=== PATIENT | female | born 1935 | race Caucasian/White ===

== ENCOUNTER → 2016-09-01 | Outpatient (CLI) | payer MEDICARE, BC ==
--- NOTE | 2016-09-01 15:04 | ECHOF ---
ECHOCARDIOGRAM REPORT DATE OF PROCEDURE September 01, 2016 This is a two-dimensional echo with spectral Doppler, color-flow and M-mode. It was obtained in a patient with shortness of breath and congestive heart failure. Left atrial dimension is normal. Left ventricle end-diastolic dimension is normal. Left ventricular wall thickness is normal. LV systolic function is normal with ejection fraction of about 64%. Right atrium is normal. Right ventricle is normal. Aortic root dimension is normal. Mitral valve is morphologically normal with sstc-db-criqmdau mitral regurgitation. Aortic valve is a trileaflet structure with no stenosis. Clij-am-hmcmplku aortic insufficiency is present. Tricuspid valve shows hdhz-va-kpzekqog tricuspid regurgitation with moderate pulmonary hypertension with estimated pulmonary artery systolic pressure of 51. Pulmonary valve shows trace of pulmonary insufficiency. There is no pericardial effusion. IMPRESSION 1. Normal LV systolic function with ejection fraction of about 64%. 2. Qeli-ly-rtglqroa aortic insufficiency. 3. Kywi-yq-ataduhjn mitral regurgitation. 4. Lpbe-as-mdqhajbc tricuspid regurgitation with moderate pulmonary hypertension with estimated pulmonary artery systolic pressure of 51. 5. Trace of pulmonary insufficiency. [facility]
== END ==
LOC: IMA 10:15
PROVIDERS: ATTEND Internal Medicine Cardiovascular Disease
DX: I08.3 Combined rheumatic disorders of mitral, aortic and tricuspid valves (principal); I27.2 Other secondary pulmonary hypertension; I50.9 Heart failure, unspecified; R06.02 Shortness of breath
CPT/HCPCS: 93306

== ENCOUNTER 2017-07-01 10:57 | Observation (INO) ==
[2017-07-01] MEDS ORDERED: SALINE FLUSH 10ml SYRINGE IVF PRN (11:21)
[2017-07-01] MEDS ORDERED: NS 1,000 ML IV ONE (11:23)
--- NOTE | 2017-07-01 11:23 | Emergency Department Report ---
General Adult HPI - General Stated complaint: flu, low bp Time Seen by Provider: 07/01/17 11:20 Source: patient, family Mode of arrival: wheelchair Limitations: no limitations - History of Present Illness HPI narrative: 81-year-old female presents to the emergency department with a chief complaint of generalized weakness and potential hypotension after being diagnosed influenza positive one day ago at her primary care physician's office. She denies any current pain or discomfort other than mild generalized body aches. She did take her Coreg this morning after noting her blood pressure to be between 88 and 90 systolic. She did not take her [place]. She called her primary care physician's office and was recommended to come to the emergency department for further evaluation and treatment. She was at home when her symptoms began. Symptoms have been persistent in nature since onset. She has no other current complaints or associated symptoms. - Related Data Home Medications Medication Instructions Recorded Confirmed Acetaminophen [Acetaminophen Extra 1,000 mg PO Q6H PRN 07/01/17 07/01/17 Strength] Carvedilol 12.5 mg PO BID 07/01/17 07/01/17 ClonazePAM [Klonopin] 1 mg PO DAILY 07/01/17 07/01/17 Gabapentin 300 mg PO BID 07/01/17 07/01/17 Latanoprost 1 drop LEFT EYE HS 07/01/17 07/01/17 Levothyroxine Sodium 88 mcg PO ACB 07/01/17 07/01/17 Losartan [Cozaar] 25 mg PO BID 07/01/17 07/01/17 Omeprazole [Prilosec] 20 mg PO DAILY 07/01/17 07/01/17 Oseltamivir Phosphate 75 mg PO BID 07/01/17 07/01/17 Potassium Chloride [Klor-Con M20] 20 meq PO DAILY 07/01/17 07/01/17 Pramipexole [Mirapex] 1 mg PO HS 07/01/17 07/01/17 Simethicone [Gas-X] 125 mg PO PRN PRN 07/01/17 07/01/17 Trazodone HCl 150 mg PO HS 07/01/17 07/01/17 guaiFENesin [Mucinex] 600 mg PO Q12H PRN 07/01/17 07/01/17 Allergies Allergy/AdvReac Type Severity Reaction Status Date / Time ciprofloxacin [From Cipro] AdvReac Verified 07/01/17 11:28 levofloxacin [From Levaquin] AdvReac Verified 07/01/17 11:28 Sulfa (Sulfonamide AdvReac Verified 07/01/17 11:28 Antibiotics) Review of Systems Constitutional: Reports: weakness (generalized). Denies: fever, chills Eyes: Denies: eye pain, vision change ENT: Denies: ear pain, throat pain Cardiovascular: Denies: chest pain, palpitations Respiratory: Reports: cough. Denies: dyspnea, wheezes Gastrointestinal: Denies: abdominal pain, nausea, vomiting, diarrhea Genitourinary: Denies: urgency, dysuria Musculoskeletal: Denies: back pain, arthralgia Integumentary: Denies: erythema, rash Neurological: Denies: headache, numbness Psychiatric: Denies: anxiety, depression Endocrine: Denies: fatigue, heat or cold intolerance Hematological/Lymphatic: Denies: easy bleeding, easy bruising, lymphadenopathy Allergic/Immunologic: Denies: facial swelling, urticaria PFSH Patient Stated Medical History Cataracts Yes Other HEENT Yes: wears glasses Congestive Heart Failure Yes Hypertension Yes Valvular Heart Disease Yes: mitral valve Gastroesophageal Reflux Yes Disease Hx Kidney Stones Yes Osteoarthritis Yes Surgical History: Left Achilles tendon repair (results of using Cipro). 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 Family History: CAD - Father - Social History Smoking status: Never smoker Substance use type: does not use Alcohol intake frequency: does not drink Physical Exam - Limitations Limitations: no limitations - General General appearance: alert, in no apparent distress - Normal Exams: Head:: Normocephalic without trauma Eyes:: Pupils are PERRLA w/ EOMI, No scleral icterus, irritation, or foreign bodies noted ENMT:: No facial trauma, nasal exudates, pharyngeal erythema, or exudates are noted Dental: No fractured, loose, or missing teeth noted Neck:: Full range of motion, without adenopathy, JVD, bruits or thyromegaly Chest/Respirations:: Clear all daly, with good airflow, and symmetry bilaterally Cardiovascular:: Regular rate and rhythm, without murmur or gallop, Pulses 2+ all extremities, capillary refill, <2 seconds all extremities Abdomen:: Bowel sounds positive, soft, non-tender, non-distended, no hepatosplenomegaly, masses or bruits noted Lymphatic:: No lymphadenopathy, or lymphedema noted Musculoskeletal:: No tenderness, or deformity noted, good range of motion, all extremities Integumentary:: No rashes, hives, or bruising noted, hair and nails, without abnormality Neurological:: Patient is alert, and oriented, cranial nerves, motor/sensory/ cerebellar, exams w/o gross deficits, to observation Psychiatric:: Patient exhibits, appropriate attention, emotion and affect Course Vital Signs Temperature 99.0 F 07/01/17 11:00 Pulse Rate 59 L 07/01/17 11:00 Respiratory Rate 20 07/01/17 11:00 Blood Pressure 104/51 07/01/17 11:00 Pulse Oximetry 93 07/01/17 11:00 Temperature 97.5 F 07/02/17 10:49 Pulse Rate 60 07/02/17 10:49 Respiratory Rate 20 07/02/17 11:50 Blood Pressure 113/60 07/02/17 10:49 Pulse Oximetry 97 07/02/17 11:50 Medical Decision Making - [facility] Narrative Medical decision making narrative: Patient's blood pressure of 84/59 was an erroneous value and taken with an inappropriately sized cuff with the patient moving. Repeat blood pressure was taken immediately with appropriate cuff and patient was not truly hypotensive in the emergency Department. Patient was never truly hypotensive in the emergency department. I do not have a source of infection for antibiotic therapy. Patient was influenza positive. Labs / imaging reviewed in detail with the patient and family and questions are answered. Patient was given 1 L normal saline intravenously. Patient declined offered analgesic pain medication in the emergency Department. Patient unfortunately required supplemental oxygen in order to maintain oxygen saturation greater than 90%. Patient does not use home O2 at all. Due to the hypoxia patient will be admitted to the service of the hospitalist Dr. Santiago who is in agreement with the current plan of management. Patient was accepted by Dr. Santiago for further evaluation and treatment. - Lab Data Result diagrams: 07/02/17 04:23 07/02/17 04:23 Lab Results 07/01/17 07/01/17 07/01/17 Range/Units 11:37 11:42 11:42 WBC 4.5 (4.5-11.0) T/MM3 RBC 3.74 L (4.00-5.20) M/MM3 Hgb 12.0 (12-16) GM/DL Hct 37.0 (36-46) % MCV 98.9 (80-100) UM3 MCH 32.1 (26-34) UUG MCHC 32.4 (31-37) GM/DL RDW Std Deviation 44.9 (36.9-50.2) FL Plt Count 174 (130-400) T/MM3 MPV 8.9 L (9.4-12.4) UM3 Immature Gran % (Auto) 0.2 (0.0-0.5) % Neut % (Auto) 59.3 (33-66) % Lymph % (Auto) 30.1 (23-45) % Wright % (Auto) 9.8 H (0-9.0) % Eos % (Auto) 0.4 (0-4) % Baso % (Auto) 0.2 (0-2) % Neut # (Auto) 2.7 (1.8-7.7) T/MM3 Lymph # (Auto) 1.4 (1-4.8) T/MM3 Wright # (Auto) 0.4 (0-0.8) T/MM3 Eos # (Auto) 0.0 (0-0.5) T/MM3 Baso # (Auto) 0.0 (0-0.2) T/MM3 Abs Immat Gran (auto) 0.01 (0.00-0.03) T/MM3 Turbidity < 20 (0-20) Sodium 130 L (134-144) MEQ/L Potassium 4.3 (3.6-5) MEQ/L Chloride 96 L (98-107) MEQ/L Carbon Dioxide 24 (22-30) MEQ/L Anion Gap 10 (5-15) MEQ/L BUN 20.0 H (7-17) MG/DL Creatinine 1.0 (0.7-1.2) MG/DL GFR Calculation 53 BUN/Creatinine Ratio 20 (6-26) RATIO Glucose 102 (65-110) MG/DL Calculated Osmolality 254 L (261-280) MOSM/KG Calcium 8.9 (8.4-10.2) MG/DL Total Bilirubin 0.50 (0.20-1.30) MG/DL Icterus Index < 2 (0-7) AST 29 (14-36) U/L ALT 34 (9-52) U/L Alkaline Phosphatase 47 (38-126) U/L Troponin I < 0.012 (0-0.12) ng/ml Total Protein 6.8 (6.3-8.2) G/DL Albumin 3.7 (3.5-5.0) G/DL Globulin 3.1 (2.4-3.6) G/DL Albumin/Globulin Ratio 1.2 (1.1-2.2) RATIO Plasma Lactate 1.0 (0.6-2.2) MMOL/L Procalcitonin < 0.05 NG/ML Specimen Hemolysis < 15 (0-25) Ur Collection Type Urine Color (YELLOW) Urine Clarity Urine pH (5.0-8.0) Ur Specific [place] (1.015-1.025) Urine Protein (NEGATIVE) Urine Glucose (UA) (NEGATIVE) Urine Ketones (NEGATIVE) Urine Occult Blood (NEGATIVE) Urine Nitrate (NEGATIVE) Urine Bilirubin (NEGATIVE) Urine Urobilinogen (NORMAL) EU/DL Ur Leukocyte Esterase (NEGATIVE) Urinalysis Comment 07/01/17 Range/Units 11:59 WBC (4.5-11.0) T/MM3 RBC (4.00-5.20) M/MM3 Hgb (12-16) GM/DL Hct (36-46) % MCV (80-100) UM3 MCH (26-34) UUG MCHC (31-37) GM/DL RDW Std Deviation (36.9-50.2) FL Plt Count (130-400) T/MM3 MPV (9.4-12.4) UM3 Immature Gran % (Auto) (0.0-0.5) % Neut % (Auto) (33-66) % Lymph % (Auto) (23-45) % Wright % (Auto) (0-9.0) % Eos % (Auto) (0-4) % Baso % (Auto) (0-2) % Neut # (Auto) (1.8-7.7) T/MM3 Lymph # (Auto) (1-4.8) T/MM3 Wright # (Auto) (0-0.8) T/MM3 Eos # (Auto) (0-0.5) T/MM3 Baso # (Auto) (0-0.2) T/MM3 Abs Immat Gran (auto) (0.00-0.03) T/MM3 Turbidity (0-20) Sodium (134-144) MEQ/L Potassium (3.6-5) MEQ/L Chloride (98-107) MEQ/L Carbon Dioxide (22-30) MEQ/L Anion Gap (5-15) MEQ/L BUN (7-17) MG/DL Creatinine (0.7-1.2) MG/DL GFR Calculation BUN/Creatinine Ratio (6-26) RATIO Glucose (65-110) MG/DL Calculated Osmolality (261-280) MOSM/KG Calcium (8.4-10.2) MG/DL Total Bilirubin (0.20-1.30) MG/DL Icterus Index (0-7) AST (14-36) U/L ALT (9-52) U/L Alkaline Phosphatase (38-126) U/L Troponin I (0-0.12) ng/ml Total Protein (6.3-8.2) G/DL Albumin (3.5-5.0) G/DL Globulin (2.4-3.6) G/DL Albumin/Globulin Ratio (1.1-2.2) RATIO Plasma Lactate (0.6-2.2) MMOL/L Procalcitonin NG/ML Specimen Hemolysis (0-25) Ur Collection Type Urine, void-cc/notcc Urine Color Yellow (YELLOW) Urine Clarity Sl cloudy Urine pH 5.5 (5.0-8.0) Ur Specific [place] 1.020 (1.015-1.025) Urine Protein Negative (NEGATIVE) Urine Glucose (UA) Negative (NEGATIVE) Urine Ketones Negative (NEGATIVE) Urine Occult Blood Negative (NEGATIVE) Urine Nitrate Negative (NEGATIVE) Urine Bilirubin Negative (NEGATIVE) Urine Urobilinogen 0.2 (NORMAL) EU/DL Ur Leukocyte Esterase Negative (NEGATIVE) Urinalysis Comment Microscopic not ind. - Radiology Data CXR - No acute processes. - EKG Data EKG #1 EKG results narrative: Sinus rhythm. Right bundle-branch block. 62 bpm. No STEMI. Disposition Clinical Impression: Hypoxia, Influenza Disposition: 02 To [facility] Condition: Improved Time of Disposition: 13:00 (Admit. Dr. Santiago. ) - Seen By: physician
--- NOTE | 2017-07-01 12:29 | XRay Report ---
Indication: cough PROCEDURE: XR chest 1V: Encounter: Initial Comparison: June 29, 2017 FINDINGS: The lungs are clear. There is no abnormal airspace opacity, pleural effusion or pneumothorax identified. The heart size, pulmonary vasculature and mediastinum are within normal limits. No significant skeletal abnormality is seen. IMPRESSION: No acute cardiopulmonary abnormality. .
--- NOTE | 2017-07-01 14:20 | History & Physical Report ---
History of Present Illness Date: 07/01/17 Chief complaint: low blood pressure HPI: Patient is an 81-year-old female who presents to the ED with her daughter for evaluation due to daughter noting blood pressure of less than 90 systolic at home. She called patient's PCP, Dr. Coburn's office, recommended she reports the emergency room. Patient was seen at the asked to after hours clinic 3 nights ago for cough. Influenza testing was negative at that time. The following day she had a chest x-ray at the hospital which was negative. Yesterday, she was seen by Dr. Coburn's nurse practitioner because she continued to have temperature, cough, and diarrhea. She tested positive for influenza at that visit and was started on Tamiflu. Upon arrival to ED, patient's blood pressure is 104/51. She was given a liter of normal saline. Chest x-ray was negative. CBC and CMP were essentially negative other than sodium of 130, and BUN slightly elevated at 20. Troponin, lactate procalcitonin were negative. Her O2 sats could not be kept above 90% without 2 L of oxygen, thus, hospitalist service was contacted and patient was admitted for observation. Review of Systems All systems PM: 10-point ROS was reviewed, no additional remarkable complaints except (weakness, cough, shortness of breath, diarrhea, and decreased appetite) Past Medical History Medical History CHF Mitral valve regurgitation GERD Nephrolithiasis Hypertension Hypothyroidism Anxiety Eczema Osteoarthritis Surgical History: Left Achilles tendon repair (results of using Cipro). 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 Family History: Father-CT Mother- of old age at age 94. 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 Patient lives alone. Medications Home Medications Medication Instructions Recorded Confirmed Type Acetaminophen [Acetaminophen Extra 1,000 mg PO Q6H PRN 07/01/17 07/01/17 History Strength] Carvedilol [Carvedilol] 12.5 mg PO BID 07/01/17 07/01/17 History ClonazePAM [Klonopin] 1 mg PO DAILY 07/01/17 07/01/17 History Gabapentin [Gabapentin] 300 mg PO BID 07/01/17 07/01/17 History Latanoprost [Latanoprost] 1 drop LEFT EYE HS 07/01/17 07/01/17 History Levothyroxine Sodium 88 mcg PO ACB 07/01/17 07/01/17 History Losartan [Cozaar] 25 mg PO BID 07/01/17 07/01/17 History Omeprazole [Prilosec] 20 mg PO DAILY 07/01/17 07/01/17 History Oseltamivir Phosphate 75 mg PO BID 07/01/17 07/01/17 History Potassium Chloride [Klor-Con M20] 20 meq PO DAILY 07/01/17 07/01/17 History Pramipexole [Mirapex] 1 mg PO HS 07/01/17 07/01/17 History Simethicone [Gas-X] 125 mg PO PRN PRN 07/01/17 07/01/17 History Trazodone HCl 150 mg PO HS 07/01/17 07/01/17 History guaiFENesin [Mucinex] 600 mg PO Q12H PRN 07/01/17 07/01/17 History Allergies Allergy/AdvReac Type Severity Reaction Status Date / Time ciprofloxacin [From Cipro] AdvReac Verified 07/01/17 11:28 levofloxacin [From Levaquin] AdvReac Verified 07/01/17 11:28 Sulfa (Sulfonamide AdvReac Verified 07/01/17 11:28 Antibiotics) Exam Vital Signs: Temperature 99.0 F 07/01/17 11:00 Pulse Rate 56 L 07/01/17 13:49 Respiratory Rate 27 H 07/01/17 13:49 Blood Pressure 105/63 07/01/17 13:49 Pulse Oximetry 96 07/01/17 13:49 Height/Weight/BMI: Height 1.68 m Weight 71 kg - Constitutional Present: no acute distress, well nourished, well developed - Routine HEENT Exam Head: Present: normocephalic, atraumatic Eye: Present: EOMI, PERRL ENT: Present: mucous membranes moist, oropharynx clear - Routine Neck Exam Present: supple. Absent: lymphadenopathy, thyromegaly - Routine Respiratory Exam Present: CTA bilaterally. Absent: wheezes - Routine Cardiovascular Exam Present: RRR, murmur - Routine Abdominal Exam Present: soft, normoactive bowel sounds. Absent: tenderness, distended - Routine Extremities Exam Present: no edema, normal capillary refill - Routine Skin Exam Present: dry, warm - Routine Neurological Exam Present: alert, oriented X3, CN II-XII intact - Routine Psychiatric Exam Present: normal affect, cooperative Results - Labs CBC & Chem 7: 07/01/17 11:37 07/01/17 11:42 Labs: Laboratory Tests 07/01/17 07/01/17 11:42 11:42 Troponin I < 0.012 Plasma Lactate 1.0 Procalcitonin < 0.05 Urinalysis-negative Microbiology Results: Microbiology 07/01/17 11:37 Peripheral/Iv Start Blood Culture - Preliminary Culture Initiated - Results Pending 07/01/17 11:41 Peripheral/Iv Start Blood Culture - Preliminary Culture Initiated - Results Pending - ECG Data Tracing #1 Normal sinus rhythm, right bundle branch block, rate 62 - Imaging and Cardiology Chest x-ray Additional comments: Date of Exam: 07/01/17 Indication: cough PROCEDURE: XR chest 1V: FINDINGS: The lungs are clear. There is no abnormal airspace opacity, pleural effusion or pneumothorax identified. The heart size, pulmonary vasculature and mediastinum are within normal limits. No significant skeletal abnormality is seen. IMPRESSION: No acute cardiopulmonary abnormality. Assessment and Plan (1) Acute respiratory failure with hypoxemia Current visit: Yes Status: Acute Assessment and Plan: Assessment Acute respiratory failure with hypoxia Positive Influenza Diarrhea-present on admission Hyponatremia-present on admission CHF Mitral valve regurgitation GERD Nephrolithiasis Hypertension Hypothyroidism Anxiety Eczema Osteoarthritis Plan Admit for observation under the hospitalist service, Dr. Santiago attending. Patient bolused 1 liter of normal saline in ER. Continue fluids at 100 cc per hour for hyponatremia and diarrhea. Continue Tamiflu. Blood pressures have been stable since arrival. Will continue to monitor. Oxygen as needed. Patient wishes to be a full code. Her DPOA-H is her daughter Katrina Sidhu. Care to be returned to Dr. Coburn on dismissal. Case discussed with Dr. Santiago, Dr. Sahu (ED doctor), and office notes reviewed. DVT Prophylaxis: SCD's Resuscitation Status: Full Code - Physician Narrative Physician: Isaac Santiago MD Narrative: Date: 07/01/17 Time: 1715 I have independently evaluated and examined this patient. I reviewed the chart, the patient's history, and the PRINCIPAL BIOINFORMATICS SPECIALIST/PA's documented findings as above. We discussed and formulated the assessment and plan as above with additions as below: Patient says she began having cough and fever last weekend. She was dx with influenza on 06/29 and started Tamiflu. She was hypotensive this am. In ED she had hypoxia and was started on O2. She reports having had diarrhea (3-4 loose stools a day) since the weekend. She denies any lightheadedness and was just up to the BR on her own. NAD. CTAB. RRR. S/NT/ND +BS. No edema. Continue Tamiflu. IVF to help rehydrate. Patient was asked not to get up on her own yet. Consult PT/OT. Continue home meds. SCD's for DVT ppx. Hospital Course Summary Disclaimer: The visit summary below is not to be considered part of the above Progress Note. Hospital Course: 07/01/17-hospital admission Admit for observation under the hospitalist service, Dr. Santiago attending. Patient bolused 1 liter of normal saline in ER. Continue fluids at 100 cc per hour for hyponatremia and diarrhea. Continue Tamiflu. Blood pressures have been stable since arrival. Will continue to monitor. Oxygen as needed. Patient wishes to be a full code. Her DPOA-H is her daughter Katrina Sidhu. Care to be returned to Dr. Coburn on dismissal. Case discussed with Dr. Santiago, Dr. Sahu (ED doctor), and office notes reviewed.
[2017-07-01 14:30] VITALS: BMI 25.6
[2017-07-01] MEDS ORDERED: ACETAMINOPHEN 500 MG TABLET PO PRN (14:38)
[2017-07-01] MEDS ORDERED: GUAIFENESIN LA 600 MG TABLET PO PRN (14:38)
[2017-07-01] MEDS ORDERED: SIMETHICONE 125 MG PO PRN (14:38)
[2017-07-01] MEDS: NS 1,000 ML IV SCH (14:57)
[2017-07-01] MEDS: ALBUTEROL/IPRATROPIUM 2.5mg-0.5mg/3ml NEB AEROSOL SCH ×2 (16:28→20:20)
[2017-07-01] MEDS ORDERED: --POM--CARVEDILOL 12.5 MG TABLET PO SCH (17:30)
[2017-07-01] MEDS ORDERED: PRAMIPEXOLE 1 MG PO SCH (21:00)
[2017-07-01] MEDS ORDERED: LATANOPROST 0.005% EYE DROPS 2.5ml LEFT EYE SCH (21:00)
[2017-07-01] MEDS ORDERED: TRAZODONE 100 MG PO SCH (21:00)
[2017-07-01] MEDS: --POM--CARVEDILOL 12.5 MG TABLET PO SCH (21:52)
[2017-07-01] MEDS: --POM--GABAPENTIN 300 MG CAPSULE PO SCH (21:53)
[2017-07-01] MEDS: --POM--LOSARTAN 50 MG TABLET PO SCH (21:54)
[2017-07-01] MEDS: OSELTAMIVIR 75 MG PO SCH (21:54)
[2017-07-02] MEDS: NS 1,000 ML IV SCH ×2 (01:20→12:47)
[2017-07-02] MEDS ORDERED: --POM--LEVOTHYROXINE 88 MCG TABLET PO SCH (06:30)
[2017-07-02] MEDS ORDERED: --POM--OMEPRAZOLE 20 MG CAPSULE PO SCH (06:30)
[2017-07-02] MEDS: ALBUTEROL/IPRATROPIUM 2.5mg-0.5mg/3ml NEB AEROSOL SCH ×2 (08:35→11:50)
[2017-07-02] MEDS ORDERED: ClonazePAM 1 MG TABLET PO SCH (09:00)
[2017-07-02] MEDS: --POM--LOSARTAN 50 MG TABLET PO SCH (09:05)
[2017-07-02] MEDS: --POM--GABAPENTIN 300 MG CAPSULE PO SCH (09:05)
[2017-07-02] MEDS: --POM--CARVEDILOL 12.5 MG TABLET PO SCH (09:05)
[2017-07-02] MEDS: OSELTAMIVIR 75 MG PO SCH (09:06)
[2017-07-02 10:50] VITALS: BP 113/60; PULSE 60; RESP 20; TEMP 97.5
[2017-07-02 11:56] VITALS: O2SAT 97
--- NOTE | 2017-07-02 12:12 | Discharge Summary ---
Discharge Information Date of admission: 07/01/17 13:19 Anticipated date of discharge: 07/02/17 Attending Physician: Isaac Santiago IV, MD Primary care physician: Beatriz Coburn MD - Discharge Diagnosis (1) Acute respiratory failure with hypoxemia Status: Acute Acute respiratory failure with hypoxia Positive Influenza A Diarrhea-present on admission Hyponatremia-present on admission CHF Mitral valve regurgitation GERD Nephrolithiasis Hypertension Hypothyroidism Anxiety Eczema Osteoarthritis - Laboratory Labs: 07/02/17 04:23 07/02/17 04:23 Laboratory Tests 07/01/17 17:43 Influenza A (H3) PCR Detected A* - Radiology Radiology: Date of Exam: 07/01/17 Indication: cough PROCEDURE: XR chest 1V: FINDINGS: The lungs are clear. There is no abnormal airspace opacity, pleural effusion or pneumothorax identified. The heart size, pulmonary vasculature and mediastinum are within normal limits. No significant skeletal abnormality is seen. IMPRESSION: No acute cardiopulmonary abnormality. History of Present Illness HPI: Patient is an 81-year-old female who presents to the ED with her daughter for evaluation due to daughter noting blood pressure of less than 90 systolic at home. She called patient's PCP, Dr. Coburn's office, recommended she reports the emergency room. Patient was seen at the asked to after hours clinic 3 nights ago for cough. Influenza testing was negative at that time. The following day she had a chest x-ray at the hospital which was negative. Yesterday, she was seen by Dr. Coburn's nurse practitioner because she continued to have temperature, cough, and diarrhea. She tested positive for influenza at that visit and was started on Tamiflu. Upon arrival to ED, patient's blood pressure is 104/51. She was given a liter of normal saline. Chest x-ray was negative. CBC and CMP were essentially negative other than sodium of 130, and BUN slightly elevated at 20. Troponin, lactate procalcitonin were negative. Her O2 sats could not be kept above 90% without 2 L of oxygen, thus, hospitalist service was contacted and patient was admitted for observation. Objective Vital signs: Temperature 97.5 F 07/02/17 10:49 Pulse Rate 60 07/02/17 10:49 Respiratory Rate 20 07/02/17 11:50 Blood Pressure 113/60 07/02/17 10:49 Pulse Oximetry 97 07/02/17 11:50 Height/Weight/BMI: Height 1.68 m Weight 71.9 kg Body Mass Index 25.6 - Constitutional Present: no acute distress, well nourished, well developed - Routine HEENT Exam Head: Present: normocephalic, atraumatic - Routine Respiratory Exam Present: CTA bilaterally. Absent: wheezes - Routine Cardiovascular Exam Present: RRR, no murmur - Routine Abdominal Exam Present: soft, non distended, non tender - Routine Extremities Exam Present: no edema, normal capillary refill - Routine Skin Exam Present: dry, warm - Routine Neurological Exam Present: alert, oriented X3 - Routine Lymphatic Exam Lymphatic: Absent: adenopathy - Routine Psychiatric Exam Present: normal affect, cooperative Hospital Course This is a general summary of the patient's hospital course. For more details refer to the complete medical record. Hospital course: 07/01/17-hospital admission Admit for observation under the hospitalist service, Dr. Santiago attending. Patient bolused 1 liter of normal saline in ER. Continue fluids at 100 cc per hour for hyponatremia and diarrhea. Continue Tamiflu. Blood pressures have been stable since arrival. Will continue to monitor. Oxygen as needed. Patient wishes to be a full code. Her DPOA-H is her daughter Katrina Sidhu. Care to be returned to Dr. Coburn on dismissal. Case discussed with Dr. Santiago, Dr. Sahu (ED doctor), and office notes reviewed. 07/02/17 Patient was weaned off the oxygen this morning. She is able to ambulate and keep her O2 sat greater than 90. She is feeling better. Will discharge today. She'll finish out her course of Tamiflu. Time spent with patient: greater than 35 minutes Resuscitation Status: Full Code Discharge Plan - Discharge Disposition Discharge Date: 07/02/17 Disposition: 01 Discharged Home, Self-Care *Condition: Improved Reason For Visit (Visit label in EMR): hypoxia - Discharge Medications *Discharge Medications: Continue Simethicone [Gas-X] 125 mg PO PRN PRN PRN Reason: Gas Acetaminophen [Acetaminophen Extra Strength] 1,000 mg PO Q6H PRN PRN Reason: Pain Trazodone HCl 150 mg PO HS Potassium Chloride [Klor-Con M20] 20 meq PO DAILY Losartan [Cozaar] 25 mg PO BID Gabapentin 300 mg PO BID Pramipexole [Mirapex] 1 mg PO HS Carvedilol 12.5 mg PO BID Omeprazole [Prilosec] 20 mg PO DAILY Levothyroxine Sodium 88 mcg PO ACB Latanoprost 1 drop LEFT EYE HS guaiFENesin [Mucinex] 600 mg PO Q12H PRN PRN Reason: Prn Orders ClonazePAM [Klonopin] 1 mg PO DAILY Oseltamivir Phosphate 75 mg PO BID - Discharge Packet/Instructions *Diet: Low-sodium diet *Activity: As tolerated *Pain Management/Treatment: N/a *Wound Care: N/a Additional Instructions: To complete the Tamiflu course, you should take a total of 10 doses. You were given 3 doses while hospitalized, so you may stop your home supply of Tamiflu when you have 3 pills left. *Expected Signs/Symptoms: Expect slow improvement. You will likely feel weak/ tired for at least several days. Expect the cough to slowly improve. *Notify Physician if: You have increasing shortness of breath or fever recurs. *During Business Hours Contact: Call Dr. Coburn's office *After Business Hours Contact: Call the hospital at [phone] and ask for the physician on-call *Pending Lab/Results: No Pending Lab - Referrals/Follow Up *Referrals/Follow Up: Beatriz Coburn MD [Family Provider] - 1 Week - Patient Handouts - Dismissal Complete Discharge Instructions are:: Complete Physician Narrative - Narrative Physician: Isaac Santiago MD Attestation Narrative: Date: 07/02/17 Time: 1346 I have independently evaluated and examined this patient. I reviewed the chart, the patient's history, and the FREIGHT BOOKER/PA's documented findings as above. We discussed and formulated the assessment and plan as above with additions as below: Patient says she is coughing up more yellowish sputum. Has been able to ambulate on room air. After rehydration she says she is feeling much better. NAD. CTAB. RRR. S/NT/ND Dismiss to home. Patient instructed to stay active but not overdo it. Continuing Tamiflu.
== END 2017-07-02 15:00 | disposition home or self-care (01) ==
LOC: MED 10:57 → ED 10:57 → MED 14:20
PROVIDERS: ADMIT Hospitalist; ATTEND Hospitalist